=== PATIENT | female | born 1930 | race Caucasian/White ===

== ENCOUNTER 2017-02-11 07:26 | Day surgery (SDC) | payer OTHER ==
[2017-02-07 13:56] VITALS: BMI 18.1
[2017-02-11] MEDS ORDERED: PHENYLEPHRINE 2.5% OPHTH SOLN 15 ML BOTTLE ONE (07:50)
[2017-02-11] MEDS ORDERED: GENTAMICIN SULFATE 0.3% OPHTHALMIC (EYE DROPS) 5ML BOTTLE ONE (07:50)
[2017-02-11] MEDS ORDERED: TROPICAMIDE 1% OPHTH SOLN 15 ML BOTTLE ONE (07:50)
[2017-02-11] MEDS ORDERED: CYCLOPENTOLATE HCL 1% OPHTH SOLN 2 ML BOTTLE ONE (07:50)
[2017-02-11] MEDS: TROPICAMIDE 1% OPHTH SOLN 15 ML BOTTLE OS SCH ×3 (08:05→08:15)
[2017-02-11] MEDS: GENTAMICIN SULFATE 0.3% OPHTHALMIC (EYE DROPS) 5ML BOTTLE OS SCH ×3 (08:05→08:15)
[2017-02-11] MEDS: PHENYLEPHRINE 2.5% OPHTH SOLN 15 ML BOTTLE OS SCH ×3 (08:05→08:15)
[2017-02-11] MEDS: CYCLOPENTOLATE HCL 1% OPHTH SOLN 2 ML BOTTLE OS SCH ×3 (08:05→08:15)
[2017-02-11] MEDS: KETOROLAC TROMETHAMINE 0.5% 5 ML BOTTLE OPTHALMIC OS SCH ×3 (08:05→08:15)
[2017-02-11] MEDS ORDERED: POVIDONE-IODINE 5% OPHTHALMIC PREP 30 ML SOLUTION ONE (08:24)
[2017-02-11] MEDS ORDERED: TETRACAINE 0.5% OPHTH SOLN 2 ML BOTTLE ONE (08:24)
[2017-02-11] MEDS ORDERED: LIDOCAINE HCL/PF 2% SDV 5ML VIAL ONE (08:24)
[2017-02-11] MEDS ORDERED: BUPIVACAINE HCL/PF 0.5% (5MG/ML) 10 ML VIAL ONE (08:25)
[2017-02-11] MEDS ORDERED: ACETYLCHOLINE 1:100 INTRA-OCUL 20 MG/2 ML KIT ONE (08:25)
[2017-02-11] MEDS ORDERED: BSS (NA/CA/MG/K) BALANCED SALT SOLUTION OPHTH SOLN 15 ML BOTTLE ONE (08:25)
[2017-02-11] MEDS ORDERED: CARBACHOL 0.01% INTRA-OCULAR 1.5 ML VIAL ONE (08:58)
[2017-02-11] MEDS ORDERED: ACETAMINOPHEN 325 MG TABLET (FP) PO PRN ×2 (11:02→11:32)
[2017-02-11] MEDS ORDERED: ONDANSETRON 4 MG/2 ML VIAL IVPUSH PRN (11:02)
[2017-02-11] MEDS ORDERED: LACTATED RINGERS SOLUTION 1,000 ML IV SCH (11:15)
[2017-02-11 11:52] VITALS: TEMP 97.7
[2017-02-11 12:14] VITALS: BP 140/61; PULSE 81
--- NOTE | 2017-02-11 23:15 | OP ---
DATE OF OPERATION: 02/11/2017 PREOPERATIVE DIAGNOSIS: Cataract, pseudoexfoliation, left eye. POSTOPERATIVE DIAGNOSIS: Cataract, pseudoexfoliation, left eye. PROCEDURE: Cataract extraction via phacoemulsification with anterior vitrectomy, with anterior chamber intraocular lens, left eye. SURGEON: Eusebio Kathleen M.D. PART TIME RECEPTIONIST: Sulma Capone M.D. ESTIMATED BLOOD LOSS: Less than 1 mL. COMPLICATIONS: None. SPECIMENS: None. PROCEDURE: The patient is identified in the holding area. After all risks, benefits, and alternatives were explained to the patient, informed consent was obtained. The left eye was marked with a marking pen. The patient then entered the operating room on an eye stretcher. After formal timeout was performed, a 3 mL injection of equal parts 2% lidocaine with epinephrine and 0.5% Marcaine was given around the left eye. The left eye was then prepped and draped in the usual sterile fashion. Eyelid speculum was placed beneath the eyelids of the left eye. A 15 degree blade was then used to make an infratemporal incision. Viscoelastic was injected into the anterior chamber, and a 2.4-mm keratome blade was then used to make a supratemporal incision. A 360-degree continuous curvilinear capsulorrhexis was then created using bent cystotome and Utrata forceps. Hydrodissection was performed with balanced saline solution on the cannula. Phacoemulsification was then introduced, disassembled and removed the nucleus in its entirety. Irrigation/aspiration was then used to remove any remaining cortical material from the eye. Upon inspection, there was noted to be a capsular tear, which was determined to be too big to place an intraocular lens in the bag or the sulcus, and vitreus was noted to be prolapsed forward. Therefore, an anterior vitrectomy was then performed, making sure no vitreus was left remaining in the anterior chamber. Upon inspection, the pupil appeared to be round. There was no vitreus present at the wound or in the anterior chamber. Subsequently Miochol was then injected intracamerally, and the pupil came down and was round. The supratemporal corneal wound was then expanded to 5.5 mm using a spatula, and the anterior chamber intraocular lens was placed into the anterior chamber with one haptic in the nasal angle and one haptic in the temporal angle. Upon inspection, the pupil appeared round and well centered beneath the anterior chamber lens . The main wound was checked for vitreus, and there was no vitreus present, and there was no vitreus found to be present in the anterior chamber. The main wound which was about 5.5 mm long was then closed with interrupted 10-0 nylon sutures, and all sutures were buried. Then attention was turned to the superior limbus, where using a 15 degree blade, a forceps and then after this, a superior iridectomy was then created. There was a red reflex present through the iridectomy. The superior wound was then closed after it was determined there was no vitreus present at that wound, and no vitreus still present in the anterior chamber, and the wound was closed with interrupted 10-0 nylon suture. Upon inspection, the anterior chamber lens was very well centered with haptics in both angles, and the pupil appeared round and well centered behind the optic. The superior iridectomy was patent, and there was a red reflex present through the iridectomy, and it was lying superior to the optic. The anterior chamber appeared deep. There was no presence of vitreus in the anterior chamber, and all wounds were checked for vitreus, and there was no vitreus found at any of the wound areas. The wounds were checked and were found to be watertight. The eye was found to have an adequate pressure, and there was a red reflex present behind the optic as well. The interrupted 10-0 nylon suture at the superior limbus was also buried successfully. Then, topical antibiotic eyedrops and antibiotic ointment were instilled onto the left eye. The eyelid speculum was then removed from the left eye. The left eye was then patched and shielded. The patient tolerated the procedure well and left the operating room in stable condition to follow up in the eye clinic tomorrow morning at 9 o'clock. Gustavo PETIT/[id number]
== END 2017-02-11 12:25 | disposition home or self-care (01) ==
LOC: FASU 07:26
PROVIDERS: ATTEND Ophthalmology
PROC: 08RK3JZ Replacement of Left Lens with Synthetic Substitute, Percutaneous Approach (ICD-10-PCS; principal; 2017-02-11 09:23)
PROC: 08B53ZZ Excision of Left Vitreous, Percutaneous Approach (ICD-10-PCS; 2017-02-11 09:23)
DX: H26.8 Other specified cataract (principal)